=== PATIENT | male | born 1975 ===

== ENCOUNTER 2017-10-06 15:11 | Outpatient (CLI) | payer BC ==
--- NOTE | 2017-10-06 20:37 | XRay Report ---
FINAL REPORT EXAM: XR HIP 2-3V RT HISTORY: RIGHT HIP PAIN TECHNIQUE: AP view of the pelvis and 2 coned-down views of the right hip. PRIORS: None. FINDINGS: No evidence for acute fracture or dislocation is seen. Joint spaces are maintained. The soft tissues are unremarkable. Bony mineralization is normal. IMPRESSION: No acute soft tissue or bony abnormality noted in the right hip.
== END 2017-10-06 15:12 | disposition home or self-care (01) ==
LOC: SPVIMAG 15:11
PROVIDERS: ATTEND Orthopaedic Surgery Sports Medicine
DX: M25.551 Pain in right hip (principal)